=== PATIENT | female | born 1960 | race Caucasian/White ===

== ENCOUNTER → 2016-04-04 | Outpatient (CLI) | payer OTHER ==
[~2016-04-04] MED LIST: COLACE100 MG PO; FLAGYL500 MG PO; FLEXERIL5 MG PO; FLONASE ALLERG9.9 ML NAS; HYDROCODONE BIT1 T11 PO; IBU800 M1 PO; OMEPRAZOLE MAGN20 M1; PREDNICOT20 MG PO; PROVIGIL100 MG; ZOFRAN4 MG PO
== END | disposition home or self-care (01) ==
LOC: US 07:58
DX: R55 Syncope and collapse (principal); R42 Dizziness and giddiness; R51 Headache; R20.0 Anesthesia of skin; R07.9 Chest pain, unspecified

== ENCOUNTER 2016-11-09 07:37 | Emergency (ER) | payer OTHER ==
[~2016-11-09] VITALS: Ht 170.1 cm; Wt 149.7 kg
[2016-11-09 08:50] LABS: ACT PARTIAL THROMBO TIME 22.1 SECONDS (20.8-31.5)
[2016-11-09 08:51] LABS: ALBUMIN 2.9 gm/dl (3.1-4.5); ALKALINE PHOSPHATASE 101 U/L (45-117); BUN 22 mg/dl (7-24); CHLORIDE 107 mmol/L (98-107); CREATININE 0.85 mg/dL (0.55-1.02); POTASSIUM 4.3 mmol/L (3.5-5.1); SGOT/AST 21 IU/L (3-35); SGPT/ALT 17 U/L (12-78); SODIUM 140 mmol/L (136-145); TOTAL PROTEIN 6.9 gm/dL (6.4-8.2); URIC ACID 5.2 mg/dL (2.6-6.0)
[2016-11-09 08:59] LABS: BASO # 0.1 10*3/uL (0.0-0.1); EOS # 0.2 10*3/uL (0.0-0.4); EOS % 1.7 % (1.0-4.0); HEMATOCRIT 42.6 % (37.0-47.0); HEMOGLOBIN 13.7 g/dl (12.0-16.0); LYMPH # 1.9 10*3/uL (1.3-4.4); LYMPH % 16.8 % (27.0-41.0); MEAN CELL VOLUME 90.4 fl (81.0-99.0); MEAN CORPUSCULAR HGB 29.1 pg (27.0-31.0); MEAN CORPUSCULAR HGB CONC 32.2 g/dl (33.0-37.0); MONO # 0.7 10*3/uL (0.1-1.0); MONO % 6.4 % (3.0-9.0); NEUT # 8.4 10*3/uL (2.3-7.9); NEUT % 73.7 % (47.0-73.0); PLATELET COUNT AUTOMATED 306 10*3/uL (130-400); RED BLOOD COUNT 4.71 10*6/uL (4.10-5.10); RED CELL DISTRI WIDTH 13.2 % (0-14.5); WHITE BLOOD COUNT 11.4 10*3/uL (4.8-10.8)
[2016-11-09] MEDS ORDERED: PREDNISONE50 MG PO (10:45)
== END 2016-11-09 11:39 | disposition home or self-care (01) ==
LOC: ED 07:37
PROVIDERS: Emergency Medicine
DX: M17.11 Unilateral primary osteoarthritis, right knee (principal); Z98.890 Other specified postprocedural states; Z79.899 Other long term (current) drug therapy; Z88.8 Allergy status to other drugs, medicaments and biological substances

== ENCOUNTER 2017-02-23 18:13 | Inpatient (IN) | payer OTHER ==
[~2017-02-23] VITALS: Ht 167.6 cm; Wt 159.5 kg
--- NOTE | ~2017-02-23 | PR ---
[place], [place] PROGRESS NOTE NAME: JERALD HENRY [facility] #: [id number] UNIT #: [id number] ROOM: 427 DOCTOR: JOHNATHON WILLIAMSON MD,CESARIO BIRTHDATE: [birth year] DOS: 02/25/2017 SUBJECTIVE: She has reported reduction in symptoms of shortness of breath with exertion. The edema of the lower extremity has been noted improving. There are no symptoms of chest pain or cough. OBJECTIVE: VITAL SIGNS: Normal temperature, respiratory rate 20, heart rate 120-95, blood pressure 120/60-115/83. Pulse oxygen saturation on room air 94% saturation. HEENT: Shows no acute change. NECK: Supple and obese. CARDIOVASCULAR: S1, S2 audible. LUNGS: The patient was noted without any wheeze or crackles. ABDOMEN: Soft, nontender. EXTREMITIES: The patient was noted with mild edema, chronic obesity. LABORATORY DATA: BMP: BUN and creatinine were noted normal today. CO2 33. ESR 28. CBC today normal. IMPRESSION: 1. The patient most likely with right-sided heart failure. 2. The patient with edema of the lower extremities. 3. History of severe morbid obesity. 4. Obstructive sleep apnea disorder, treated with CPAP. PLAN OF MANAGEMENT: No changes in the therapy for this patient at this time. Continue the current therapy, plan of management and care. Usual treatment, other supportive plan of management and therapies. CESARIO DIEGO MD CM:PNTRANS 1419 17 CESARIO WILLIAMSON MD 02/25/172217 interface
--- NOTE | ~2017-02-23 | PR ---
[place], [place] PROGRESS NOTE NAME: JERALD HENRY [facility] #: [id number] UNIT #: [id number] ROOM: 427 DOCTOR: JOHNATHON WILLIAMSON MD,CESARIO BIRTHDATE: [birth year] DOS: 02/26/2017 PULMONARY PROGRESS NOTE SUBJECTIVE: She continued on the diuretic therapy at this time with reduction in edema of lower extremities. Shortness of breath has been decreasing. There was no further hypoxia described. OBJECTIVE: VITAL SIGNS: Normal temperature, respiratory rate 20, heart rate 78, blood pressure 122/80. Intake 2000, output 3800 mL. Pulse oxygen saturation on room air was 97% saturation this morning at rest. HEENT: No acute change. NECK: Supple. CARDIOVASCULAR: S1, S2 audible. LUNGS: Without any wheeze or crackles. ABDOMEN: Soft, nontender. EXTREMITIES: Shows resolving edema with chronic morbid obesity. LABORATORY DATA: Normal BUN and creatinine were noted this morning and other electrolytes. CBC was normal. IMPRESSION: Resolving acute ____ right-sided congestive heart failure. The patient with a history of severe morbid obesity and obstructive sleep apnea disorder. PLAN OF TREATMENT: No changes in plan of therapy at this time will be recommended. Continue current plan of management and care with the diuretic. Monitor kidney function and electrolytes. Continue CPAP from home. CESARIO DIEGO MD CM:PNTRANS 1217 CESARIO WILLIAMSON MD 02/27/17 0038 interface
--- NOTE | ~2017-02-23 | PR ---
[place], [place] PROGRESS NOTE [facility] [id number] #: [id number] ROOM: 427 DOCTOR: CELESTE GRIFFIN MD BIRTHDATE: [birth year] DOS: 02/28/2017 CARDIOLOGY PROGRESS NOTE SUBJECTIVE: The patient was seen at her bedside today with family in attendance. She continues to have significant peripheral edema and also does have dyspnea and tachycardia with modest exertion. She denies any chest pain. She is diuresing slowly. PHYSICAL EXAMINATION: VITAL SIGNS: Today, her pulse is 100 at rest, blood pressure is 128/84. She is afebrile. She weighs 161.6 kilograms. NECK: Supple. She has no jugular distention, but she does have hepatojugular reflux. Carotids are full. LUNGS: Respirations are unlabored at rest. She has decreased breath sounds at the bases, but no wheezes or rales. HEART: Has a regular rhythm. She has a fourth heart sound, but no third heart sound. ABDOMEN: Obese, but otherwise benign. EXTREMITIES: Showed 2+ pitting edema to the knees. Echocardiogram dated 02/26/2017 showed normal left ventricular size with mild concentric left ventricular hypertrophy. Overall, systolic function was normal with grade 1 diastolic relaxation abnormalities. Right ventricular size and function were normal. There was no clinically important abnormality of valve function. Hemoglobin today is 12.7 with a white count of 7800 and a platelet count of 286,000. Sodium is 142, potassium 3.7, BUN 20 and creatinine 0.82. IMPRESSION: 1. Chronic diastolic congestive heart failure with significant fluid retention. 2. Cellulitis of the lower extremities due to fluid overload. 3. Tachycardia. 4. Morbid obesity. PLAN: We will increase her diuretics. I was hoping to switch her to oral diuretics, but at this point, I think we must continue to diurese her with intravenous medications. We will increase the dose and frequency of her IV furosemide and continue to observe her closely. I thank the hospitalist physicians for asking our advice regarding her care. [place], [place] PROGRESS NOTE NAME: JERALD HENRY UNIT #: [id number] ROOM: 427 DOCTOR: CELESTE GRIFFIN MD BIRTHDATE: [birth year] CELESTE GRIFFIN MD CM:PNTRANS 31 51 CELESTE GRIFFIN MD 02/28/172251 interface
--- NOTE | ~2017-02-23 | PR ---
[place], [place] PROGRESS NOTE NAME: JERALD HENRY [facility] #: [id number] UNIT #: [id number] ROOM: 427 DOCTOR: JOHNATHON WILLIAMSON MD,CESARIO BIRTHDATE: [birth year] DOS: 02/28/2017 SUBJECTIVE: The patient has not been noted any new acute respiratory complaints at this time. Shortness of breath has been noted stable, occur only with exertion. This morning, she was seen sitting on the chair. The diuretic has been continued, but the patient was not noted adequate diuresis in the past 24 hours. OBJECTIVE: VITAL SIGNS: Normal temperature, respiratory rate 20, heart rate 90, blood pressure 108/58 recorded this morning. The intake was 1690, output was 2350, negative for 660 mL. Pulse ox saturation on room air was 93-94% saturation recorded at rest. HEENT: No acute change. NECK: Supple. CARDIOVASCULAR: S1, S2 audible. LUNGS: The patient was noted without any wheeze or crackles at the present time. ABDOMEN: Soft, nontender. IMPRESSION: 1. Stable respiratory status noted at the present time. 2. Dyspnea with exertion. 3. History of obstructive sleep apnea disorder. 4. Persistent congestive heart failure. 5. Edema of the lower extremity was noted. PLAN OF MANAGEMENT: Continuation of the diuretic use to keep the patient in negative fluid balance. Other supportive therapy, plan of management as well. Usual care, other treatment plan of care. CESARIO DIEGO MD CM:PNTRANS 120 28 CESARIO WILLIAMSON MD 02/28/171828 interface
--- NOTE | ~2017-02-23 | CON ---
[place], [place] REPORT OF CONSULTATION NAME: JERALD HENRY [facility] #: [id number] UNIT #: [id number] ROOM: 427 DOCTOR: JOHNATHON WILLIAMSON MD,CESARIO BIRTHDATE: [birth year] DOS: 02/24/2017 PULMONARY CONSULTATION EVALUATION AND MANAGEMENT REASON FOR CONSULTATION: Symptoms of shortness of breath. HISTORY OF PRESENT ILLNESS: A 57-year-old white female, who has been known to me from the past, but not seen in the office more than 4 years. She has been diagnosed with obstructive sleep apnea disorder treated with the positive airway pressure treatment. The patient presented to the hospital. She has been noted progressive increased shortness of breath ongoing for the past 3 months or so. She was also noted with increasing edema of the lower extremities. The patient denies any symptoms of chest pain or hemoptysis. The shortness of breath was not associated with any symptoms of coughing, wheezing, chest pain, or chest tightness. REVIEW OF SYSTEMS: CONSTITUTIONAL: Symptom progressive weight gain has occurred in the last several months gradually as well. She stated she has gained about 70 pounds of weight in the past 3 months. Denies any symptoms of fever or chills. Complaining of fatigue. EYES: Denies any burning, redness, or tenderness. EARS, NOSE, AND THROAT SYMPTOMS: Sore throat, hoarseness, otalgia, postnasal drainage, or epistaxis. CARDIOVASCULAR: Denies anginal pain of the lower extremity, palpitation noted, progressive edema of the bilateral lower extremities. GASTROINTESTINAL: Dysphagia, nausea, vomiting, diarrhea, abdominal pain, hematemesis, melena, or hematochezia. SKIN: Denies any lesions or rashes. MUSCULOSKELETAL: No acute joint pain, redness, or tenderness. SKIN: No lesions or rashes. CENTRAL NERVOUS SYSTEM: No dizziness, headache, diplopia, syncopal episodes, or seizures. Remaining systems were reviewed. They were noted all negative. PAST MEDICAL HISTORY: 1. The patient noted with history of obstructive sleep apnea disorder, noncompliant with the treatment. 2. Severe morbid obesity, progressive weight gain. The patient weight was known to in in 2012 at 320 previously, currently noted with a BMI of 59. 3. History of arthritis, regular use of ibuprofen 800 mg p.o. b.i.d. 4. History of essential hypertension. SOCIAL HISTORY: She was noted nonsmoker lifetime. Lives at home. Denies any history of alcohol use, illicit drug use, or any tobacco use. PAST SURGICAL HISTORY: No major surgeries. FAMILY HISTORY: The patient's father at age 9090 years old from complication of congestive heart failure and multiple other complications. Mother at the age of 7878 years old, complication related to the lung cancer. [place], [place] REPORT OF CONSULTATION [facility]: [facility] [id number] UNIT #: [id number] ROOM: [facility] DOCTOR: CESARIO MORGAN MD BIRTHDATE: [birth year] HOME MEDICATIONS: Reported use of recent prescription of prednisone and Flonase. The patient had been using previously as regular use of cetirizine, omeprazole, Colace, and ibuprofen 800 mg p.o. b.i.d. DRUG ALLERGY HISTORY: THE PATIENT WAS NOTED ALLERGIES TO PSEUDOEPHEDRINE. PHYSICAL EXAMINATION: GENERAL: This is a 57-year-old female patient, who has been currently lying in the bed, without any acute distress. VITAL SIGNS: Height of 5 feet 6 inches, weight of 367 pounds, BMI 59.3. Shows normal temperature, respiratory rate of 18-20, heart rate of 102-106 with heart rate going up to 150. The patient with mild exertion. Blood pressure ranging between 151/70-119/77. The pulse oxygen saturation noted as 96% on room air. HEENT: Patient's oxygen saturation does drop as she stays the last night in the 80s, as the patient went from her bed to the bathroom only 4 or 5 feet in the hospital. HEENT: Severe morbid obesity. NECK: Supple, short and obese. Severe reduced posterior pharyngeal space, high tongue base and crowding soft tissue structures. CARDIOVASCULAR: S1, S2 is audible. LUNGS: The patient was noted with general reduction of breath sounds bilaterally without any wheeze or crackles. ABDOMEN: Soft, severe morbid obesity. Bowel sounds present without any tenderness. EXTREMITIES: 2+ to 3+ pitting edema lower extremities. There was no visible skin changes which are noted abnormal at the present time of assessment. CENTRAL NERVOUS SYSTEM: Cranial nerves 2-12 intact. No focal deficit. MUSCULOSKELETAL: Does not show any acute deformities. SKIN: She does not show any lesions or rashes. LABORATORY DATA: The patient's CBC yesterday normal. CBC was noted except 4.1% eosinophils. PT/PTT were noted normal. The patient on 02/23, CMP was noted completely normal including a proBNP. Ultrasound of bilateral lower extremities was done, which does not show evidence of deep venous thrombosis. Lactic acid 2.6. The patient was noted with followup lactic acid 1.5. CBC on 02/24, was noted as normal. CMP was 02/24, normal BUN and creatinine. Chest x-ray, 2-view, which was noted limited for the patient, reviewed from PACS images, does not show any acute pulmonary abnormalities. The patient has also CTA of the chest completed yesterday. The patient during this current hospitalization, on admission does not show any evidence of pulmonary embolism. Hiatal hernia was noted. Lungs were noted clear of any infiltration or other abnormalities. There were no pleural effusions. PT and PTT were noted normal this morning. The patient had ultrasound of the abdomen completed as well for the patient, which was noted without any acute abnormalities. The patient was described as a diffuse hepatic steatosis as well as cholelithiasis. IMPRESSION: 1. The patient who has been currently admitted to the hospital. The patient presented to hospital with symptoms of shortness breath related to possibility [place], [place] REPORT OF CONSULTATION [facility]: [id number] UN[facility] #: [id number] ROOM: 427 DOCTOR: JOHNATHON WILLIAMSON MD,CESARIO BIRTHDATE: [birth year] of some volume load as well as increase obesity. Underlying bronchial asthma related to the obesity cannot be completely excluded. 2. Exertion of hypoxia secondary to above. 3. The patient with obstructive sleep apnea disorder, noncompliant to treatment. 4. Severe super morbid obesity. The patient with edema of the lower extremity, most likely related to the use of the nonsteroidal anti-inflammatory medication regularly as ibuprofen and possibility of cor pulmonale with right-sided heart failure would be considered in the differential diagnosis. 6. History of osteoarthritis and other medical illnesses are reported. PLAN OF MANAGEMENT: Consider discontinuation of nonsteroidal anti-inflammatory medication, diuretic ____ monitoring of the BUN and creatinine closely. The echocardiogram to assess the right ventricular function and to rule out pulmonary hypertension as well. Consider reassessment. The patient's management obstructive sleep apnea disorder because of severe morbid obesity at the younger age. The patient should be assessed and will benefit from bariatric surgery assess with the patient was a gastric sleeve resection in the future. Other supportive therapy, plan of management, and care. Usual treatment, other therapies as ongoing. Additional treatment changes will be ordered based on the progression of the illness and further assessment in future. CESARIO DIEGO MD CM:CONSTR:REPORT OF CONSULTATION 1326 02/24/17 1923 interface
--- NOTE | ~2017-02-23 | PR ---
[place], [place] PROGRESS NOTE [facility] [id number] UNIT #: [id number] ROOM: 427 DOCTOR: JOHNATHON WILLIAMSON MD,CESARIO BIRTHDATE: [birth year] DOS: 02/27/2017 SUBJECTIVE: She has been noted comfortable at this time. Continued on diuretic therapy. Denies symptoms of chest pain, coughing, or any sputum expectoration. The shortness of breath has been noted decreasing with exertion. She does not have any symptoms of shortness of breath at rest, but there were ____ symptoms of wheeze. OBJECTIVE: VITAL SIGNS: Recorded and show normal temperature, respiratory rate 20, heart rate 95, blood pressure 108/58. Pulse oxygen saturation 92% on room air. HEENT: No acute change. NECK: Supple. CARDIOVASCULAR: S1, S2 audible. LUNGS: Without any wheeze or crackles at present time. ABDOMEN: Soft and nontender. EXTREMITIES: Show chronic obesity with mild superimposed edema. IMPRESSION: The patient with acute congestive heart failure, noted with severe morbid obesity and history of obstructive sleep apnea disorder. PLAN OF TREATMENT: Continue diuretic. Monitor respiratory symptoms. Continue monitoring the respiratory status as well. Continue use of CPAP at night. CESARIO DIEGO MD CM:PNTRANS 1204 1405 CESARIO WILLIAMSON MD 02/27/17 1405 interface
--- NOTE | ~2017-02-23 | PR ---
[place], [place] PROGRESS NOTE NAME: JERALD HENRY [facility] #: [id number] UNIT #: [id number] ROOM: 427 DOCTOR: JOHNATHON WILLIAMSON MD,CESARIO BIRTHDATE: [birth year] DOS: 03/01/2017 SUBJECTIVE: The patient has been noted comfortable at this time, noted with continued diuresis. She stated that she will be considered for home discharge today. She has not been noted symptoms of chest pain or any abdominal pain. OBJECTIVE: VITAL SIGNS: Recorded and show normal temperature, respiratory rate 20, heart rate 91, blood pressure 120/74. The pulse ox saturation normal on room air. Output negative ____ noted 1.59 liters in the last 24 hours. GENERAL: Chronic obesity. NECK: Supple. CARDIOVASCULAR: S1, S2 audible. LUNGS: Clear. ABDOMEN: Soft and nontender. EXTREMITIES: Still show mild edema of the ankles and feet. IMPRESSION: 1. Resolving acute congestive heart failure, most likely right-sided heart failure would be considered. 2. The patient with chronic morbid obesity as well with obstructive sleep apnea disorder. PLAN OF TREATMENT: No changes from the pulmonary standpoint. Continue the patient's current therapy and plan of care as previously. Usual care, other supportive plan of management and treatment. CESARIO DIEGO MD CM:PNTRANS 1035 1426 CESARIO WILLIAMSON MD 03/01/17 1426 interface
[~2017-02-23 18:13] MED LIST changes: +PREDNISONE50 MG PO
[2017-02-23 18:34] VITALS: BP 142/55
[2017-02-23 19:01] LABS: BASO # 0.1 10*3/uL (0.0-0.1); BASO % 0.8 % (0.0-1.0); EOS # 0.4 10*3/uL (0.0-0.4); EOS % 4.1 % (1.0-4.0); HEMATOCRIT 43.2 % (37.0-47.0); LYMPH # 2.5 10*3/uL (1.3-4.4); MEAN CORPUSCULAR HGB 29.2 pg (27.0-31.0); MEAN CORPUSCULAR HGB CONC 32.4 g/dl (33.0-37.0); MEAN PLATELET VOLUME 9.9 fl (9.6-12.3); MONO # 0.6 10*3/uL (0.1-1.0); MONO % 6.2 % (3.0-9.0); NEUT # 6.3 10*3/uL (2.3-7.9); NEUT % 63.7 % (47.0-73.0); PLATELET COUNT AUTOMATED 303 10*3/uL (130-400); RED CELL DISTRI WIDTH 13.3 % (0-14.5); WHITE BLOOD COUNT 9.8 10*3/uL (4.8-10.8)
[2017-02-23 19:12] LABS: ACT PARTIAL THROMBO TIME 23.1 SECONDS (20.8-31.5); INTERNATIONAL NORM RATIO 0.9 (2.0-3.5)
[2017-02-23 19:19] LABS: ALBUMIN 3.2 gm/dl (3.1-4.5); ALKALINE PHOSPHATASE 102 U/L (45-117); BUN 14 mg/dl (7-24); CHLORIDE 107 mmol/L (98-107); CREATININE 0.79 mg/dL (0.55-1.02); POTASSIUM 4.3 mmol/L (3.5-5.1); SGOT/AST 23 IU/L (3-35); SGPT/ALT 24 U/L (12-78); SODIUM 141 mmol/L (136-145); TOTAL PROTEIN 7.2 gm/dL (6.4-8.2)
[2017-02-23 19:22] LABS: TROPONIN I < 0.015 ng/ml (<0.045)
[2017-02-23 19:40] VITALS: BP 148/70
[2017-02-23 20:30] VITALS: BP 151/70
[2017-02-23 21:24] VITALS: BP 128/75
[2017-02-23 21:45] VITALS: BP 121/79
[2017-02-23 22:25] VITALS: BP 149/67
[2017-02-24] VITALS: BP 119/77
[2017-02-24] MEDS ORDERED: ZYRTEC10 MG PO (01:27)
[2017-02-24 06:53] LABS: BASO # 0.1 10*3/uL (0.0-0.1); BASO % 0.9 % (0.0-1.0); EOS # 0.4 10*3/uL (0.0-0.4); EOS % 4.6 % (1.0-4.0); HEMATOCRIT 39.4 % (37.0-47.0); HEMOGLOBIN 12.8 g/dl (12.0-16.0); LYMPH # 2.2 10*3/uL (1.3-4.4); LYMPH % 23.8 % (27.0-41.0); MEAN CELL VOLUME 89.5 fl (81.0-99.0); MEAN CORPUSCULAR HGB 29.1 pg (27.0-31.0); MEAN CORPUSCULAR HGB CONC 32.5 g/dl (33.0-37.0); MEAN PLATELET VOLUME 10.1 fl (9.6-12.3); MONO # 0.8 10*3/uL (0.1-1.0); MONO % 8.3 % (3.0-9.0); NEUT # 5.6 10*3/uL (2.3-7.9); NEUT % 62.3 % (47.0-73.0); PLATELET COUNT AUTOMATED 288 10*3/uL (130-400); RED CELL DISTRI WIDTH 13.3 % (0-14.5); WHITE BLOOD COUNT 9.1 10*3/uL (4.8-10.8)
[2017-02-24 07:25] LABS: ALBUMIN 3.1 gm/dl (3.1-4.5); BUN 13 mg/dl (7-24); CHLORIDE 104 mmol/L (98-107); POTASSIUM 3.7 mmol/L (3.5-5.1); SODIUM 142 mmol/L (136-145)
[2017-02-24 07:32] LABS: ALKALINE PHOSPHATASE 94 U/L (45-117); CHOLESTEROL 214 mg/dL (<200); CREATININE 0.78 mg/dL (0.55-1.02); HDL CHOLESTEROL 59 mg/dl (40-60); LDL CHOLESTEROL 132 mg/dL (9-159); SGOT/AST 17 IU/L (3-35); SGPT/ALT 21 U/L (12-78); TOTAL PROTEIN 6.5 gm/dL (6.4-8.2); TRIGLYCERIDES 116 mg/dl (<150); VLDL CHOLESTEROL 23 mg/dL (6-40)
[2017-02-24 07:42] LABS: ACT PARTIAL THROMBO TIME 24.2 SECONDS (20.8-31.5)
[2017-02-24 08:00] VITALS: BP 109/89
[2017-02-24 08:32] LABS: VITAMIN D, 25-HYDROXY 17.5 ng/mL (30-100)
[2017-02-24 11:12] LABS: BILIRUBIN NEGATIVE (NEGATIVE); BLOOD NEGATIVE (NEGATIVE); CLARITY SL CLOUDY (CLEAR); COLOR YELLOW (YELLOW); GLUCOSE NEGATIVE (NEGATIVE); KETONE NEGATIVE (NEGATIVE); LEUKO ESTERASE 1+ (NEGATIVE); NITRITE NEGATIVE (NEGATIVE); UROBILINOGEN 0.2 E.U./dl (0.2-1.0)
[2017-02-24 11:48] LABS: BACTERIA 1+; EPITHELIAL CELLS 16-20; WBC 16-20 wbc/hpf (0-5)
[2017-02-24 12:00] VITALS: BP 126/56
[2017-02-24 14:19] VITALS: BP 116/62
[2017-02-24 16:00] VITALS: BP 126/83
[2017-02-24 20:00] VITALS: BP 104/59
[2017-02-25] VITALS: BP 112/61
[2017-02-25 07:45] LABS: BASO # 0.1 10*3/uL (0.0-0.1); BASO % 1.1 % (0.0-1.0); EOS # 0.5 10*3/uL (0.0-0.4); HEMATOCRIT 41.1 % (37.0-47.0); HEMOGLOBIN 13.2 g/dl (12.0-16.0); LYMPH # 2.2 10*3/uL (1.3-4.4); LYMPH % 33.8 % (27.0-41.0); MEAN CELL VOLUME 91.7 fl (81.0-99.0); MEAN CORPUSCULAR HGB 29.5 pg (27.0-31.0); MEAN CORPUSCULAR HGB CONC 32.1 g/dl (33.0-37.0); MONO # 0.6 10*3/uL (0.1-1.0); MONO % 8.8 % (3.0-9.0); NEUT # 3.2 10*3/uL (2.3-7.9); PLATELET COUNT AUTOMATED 292 10*3/uL (130-400); RED BLOOD COUNT 4.48 10*6/uL (4.10-5.10); RED CELL DISTRI WIDTH 13.2 % (0-14.5); WHITE BLOOD COUNT 6.6 10*3/uL (4.8-10.8)
[2017-02-25 08:00] VITALS: BP 120/60
[2017-02-25 08:09] LABS: ALBUMIN 2.9 gm/dl (3.1-4.5); ALKALINE PHOSPHATASE 96 U/L (45-117); BUN 20 mg/dl (7-24); CHLORIDE 103 mmol/L (98-107); CREATININE 0.87 mg/dL (0.55-1.02); PHOSPHOROUS 3.9 mg/dL (2.5-4.9); POTASSIUM 3.6 mmol/L (3.5-5.1); SGOT/AST 17 IU/L (3-35); SGPT/ALT 20 U/L (12-78); SODIUM 142 mmol/L (136-145); TOTAL PROTEIN 6.5 gm/dL (6.4-8.2)
[2017-02-25 12:00] VITALS: BP 115/83
[2017-02-25 16:00] VITALS: BP 117/71
[2017-02-25 20:00] VITALS: BP 110/50
[2017-02-26] VITALS: BP 135/45
[2017-02-26 04:00] VITALS: BP 111/45
[2017-02-26 06:16] LABS: ALBUMIN 2.9 gm/dl (3.1-4.5); ALKALINE PHOSPHATASE 88 U/L (45-117); BUN 20 mg/dl (7-24); CHLORIDE 103 mmol/L (98-107); POTASSIUM 3.5 mmol/L (3.5-5.1); SGOT/AST 15 IU/L (3-35); SGPT/ALT 18 U/L (12-78); SODIUM 141 mmol/L (136-145); TOTAL PROTEIN 6.4 gm/dL (6.4-8.2)
[2017-02-26 06:41] LABS: BASO # 0.1 10*3/uL (0.0-0.1); BASO % 0.8 % (0.0-1.0); EOS # 0.5 10*3/uL (0.0-0.4); HEMATOCRIT 39.5 % (37.0-47.0); HEMOGLOBIN 12.8 g/dl (12.0-16.0); LYMPH # 2.5 10*3/uL (1.3-4.4); LYMPH % 31.7 % (27.0-41.0); MEAN CELL VOLUME 89.8 fl (81.0-99.0); MEAN CORPUSCULAR HGB 29.1 pg (27.0-31.0); MEAN CORPUSCULAR HGB CONC 32.4 g/dl (33.0-37.0); MEAN PLATELET VOLUME 10.1 fl (9.6-12.3); MONO # 0.7 10*3/uL (0.1-1.0); MONO % 8.5 % (3.0-9.0); NEUT # 4.1 10*3/uL (2.3-7.9); NEUT % 52.6 % (47.0-73.0); PLATELET COUNT AUTOMATED 296 10*3/uL (130-400); RED CELL DISTRI WIDTH 13.2 % (0-14.5); WHITE BLOOD COUNT 7.8 10*3/uL (4.8-10.8)
[2017-02-26 08:00] VITALS: BP 122/80
[2017-02-26 12:00] VITALS: BP 127/68
[2017-02-26 16:00] VITALS: BP 132/70
[2017-02-26 20:00] VITALS: BP 108/76
[2017-02-27] VITALS: BP 111/78
[2017-02-27 07:14] LABS: BASO # 0.1 10*3/uL (0.0-0.1); BASO % 1.1 % (0.0-1.0); EOS # 0.4 10*3/uL (0.0-0.4); EOS % 5.6 % (1.0-4.0); HEMATOCRIT 39.1 % (37.0-47.0); HEMOGLOBIN 12.7 g/dl (12.0-16.0); LYMPH # 2.3 10*3/uL (1.3-4.4); LYMPH % 29.5 % (27.0-41.0); MEAN CELL VOLUME 91.1 fl (81.0-99.0); MEAN CORPUSCULAR HGB 29.6 pg (27.0-31.0); MEAN CORPUSCULAR HGB CONC 32.5 g/dl (33.0-37.0); MEAN PLATELET VOLUME 9.8 fl (9.6-12.3); MONO # 0.7 10*3/uL (0.1-1.0); MONO % 8.8 % (3.0-9.0); NEUT # 4.3 10*3/uL (2.3-7.9); NEUT % 54.5 % (47.0-73.0); PLATELET COUNT AUTOMATED 286 10*3/uL (130-400); RED BLOOD COUNT 4.29 10*6/uL (4.10-5.10); RED CELL DISTRI WIDTH 13.3 % (0-14.5); WHITE BLOOD COUNT 7.8 10*3/uL (4.8-10.8)
[2017-02-27 07:40] LABS: CHLORIDE 104 mmol/L (98-107); POTASSIUM 3.7 mmol/L (3.5-5.1); SODIUM 142 mmol/L (136-145)
[2017-02-27 07:55] LABS: ALBUMIN 2.8 gm/dl (3.1-4.5); ALKALINE PHOSPHATASE 90 U/L (45-117); BUN 20 mg/dl (7-24); CREATININE 0.82 mg/dL (0.55-1.02); SGOT/AST 21 IU/L (3-35); SGPT/ALT 19 U/L (12-78); TOTAL PROTEIN 6.4 gm/dL (6.4-8.2)
[2017-02-27 08:00] VITALS: BP 108/58
[2017-02-27 12:00] VITALS: BP 123/64
[2017-02-27 16:00] VITALS: BP 113/86
[2017-02-27 20:00] VITALS: BP 121/80
[2017-02-28] VITALS: BP 116/58
[2017-02-28 08:00] VITALS: BP 108/58
[2017-02-28 12:00] VITALS: BP 101/58
[2017-02-28 16:00] VITALS: BP 128/84
[2017-02-28 20:00] VITALS: BP 103/72
[2017-03-01] VITALS (7 sets, daily range): BP systolic 99–126; BP diastolic 47–84
[2017-03-01 08:24] LABS: BUN 18 mg/dl (7-24); CHLORIDE 103 mmol/L (98-107); CREATININE 0.88 mg/dL (0.55-1.02); POTASSIUM 3.5 mmol/L (3.5-5.1); SODIUM 142 mmol/L (136-145)
[2017-03-02] VITALS: BP 115/66
[2017-03-02 07:04] LABS: BUN 21 mg/dl (7-24); CHLORIDE 100 mmol/L (98-107); CREATININE 0.97 mg/dL (0.55-1.02); POTASSIUM 3.4 mmol/L (3.5-5.1); SODIUM 138 mmol/L (136-145)
[2017-03-02 08:00] VITALS: BP 108/62
[2017-03-02 12:00] VITALS: BP 116/42
[2017-03-02] MEDS ORDERED: TOPROL XL50 M1 PO (12:12)
[2017-03-02] MEDS ORDERED: ALDACTONE25 MG PO (12:12)
[2017-03-02] MEDS ORDERED: TORSEMIDE20 MG PO (12:12)
[2017-03-02] MEDS ORDERED: LOSARTAN POTASS25 M1 PO (12:12)
== END 2017-03-02 13:52 | disposition home or self-care (01) | DRG 871 ==
LOC: ED 18:13 → 4E 21:58 → EDHOLD 21:58 → 4E 22:03
PROVIDERS: Emergency Medicine; Family Medicine; Internal Medicine Cardiovascular Disease; ADMIT Emergency Medicine
PROC: 5A09357 Assistance with Respiratory Ventilation, Less than 24 Consecutive Hours, Continuous Positive Airway Pressure (ICD-10-PCS; principal; 2017-02-26)
PROC: 5A09357 Assistance with Respiratory Ventilation, Less than 24 Consecutive Hours, Continuous Positive Airway Pressure (ICD-10-PCS; 2017-02-27)
PROC: 5A09357 Assistance with Respiratory Ventilation, Less than 24 Consecutive Hours, Continuous Positive Airway Pressure (ICD-10-PCS; 2017-03-02)
DX: A41.9 Sepsis, unspecified organism (principal); I50.33 Acute on chronic diastolic (congestive) heart failure; E87.2 Acidosis; E44.1 Mild protein-calorie malnutrition; E66.01 Morbid (severe) obesity due to excess calories; L03.116 Cellulitis of left lower limb; L03.115 Cellulitis of right lower limb; E83.41 Hypermagnesemia; R65.20 Severe sepsis without septic shock; M17.0 Bilateral primary osteoarthritis of knee; E78.00 Pure hypercholesterolemia, unspecified; K21.9 Gastro-esophageal reflux disease without esophagitis; D72.810 Lymphocytopenia; G47.33 Obstructive sleep apnea (adult) (pediatric); Z88.8 Allergy status to other drugs, medicaments and biological substances; Z68.43 Body mass index [BMI] 50.0-59.9, adult; Z82.49 Family history of ischemic heart disease and other diseases of the circulatory system; Z80.1 Family history of malignant neoplasm of trachea, bronchus and lung; Z79.899 Other long term (current) drug therapy

== ENCOUNTER → 2017-03-07 | Outpatient (CLI) | payer OTHER ==
[~2017-03-07] MED LIST changes: +ALDACTONE25 MG PO; +LOSARTAN POTASS25 M1 PO; +TOPROL XL50 M1 PO; +TORSEMIDE20 MG PO; +ZYRTEC10 MG PO
[2017-03-07 16:36] LABS: CREATININE 1.16 mg/dL (0.55-1.02); POTASSIUM 4.1 mmol/L (3.5-5.1)
== END | disposition home or self-care (01) ==
LOC: LAB 15:47
PROVIDERS: Emergency Medicine
DX: I50.9 Heart failure, unspecified (principal)

== ENCOUNTER → 2017-04-20 | Outpatient (CLI) | payer OTHER ==
[2017-04-20 18:05] LABS: BUN 21 mg/dl (7-24); CHLORIDE 94 mmol/L (98-107); CREATININE 1.03 mg/dL (0.55-1.02); POTASSIUM 3.2 mmol/L (3.5-5.1); SODIUM 136 mmol/L (136-145)
== END | disposition home or self-care (01) ==
LOC: LAB 17:10
PROVIDERS: Internal Medicine Cardiovascular Disease
DX: I50.32 Chronic diastolic (congestive) heart failure (principal); E66.01 Morbid (severe) obesity due to excess calories

== ENCOUNTER → 2017-08-08 | Outpatient (CLI) | payer OTHER ==
[2017-08-08 18:31] LABS: BUN 15 mg/dl (7-24); CHLORIDE 97 mmol/L (98-107); CREATININE 0.93 mg/dL (0.55-1.02); POTASSIUM 3.3 mmol/L (3.5-5.1); SODIUM 138 mmol/L (136-145)
== END | disposition home or self-care (01) ==
LOC: LAB 17:42
PROVIDERS: Internal Medicine Cardiovascular Disease
DX: I50.32 Chronic diastolic (congestive) heart failure (principal)

== ENCOUNTER → 2017-08-15 | Outpatient (CLI) | payer OTHER | END | disposition home or self-care (01) | LOC: RAD 07:49 | DX: Z01.818 Encounter for other preprocedural examination (principal) ==

== ENCOUNTER → 2018-02-09 | Outpatient (CLI) | payer OTHER ==
[2018-02-09 11:16] LABS: BASO # 0.1 10*3/uL (0.0-0.1); BASO % 0.8 % (0.0-1.0); EOS # 0.3 10*3/uL (0.0-0.4); EOS % 3.9 % (1.0-4.0); HEMATOCRIT 41.8 % (37.0-47.0); HEMOGLOBIN 13.3 g/dl (12.0-16.0); LYMPH % 24.3 % (27.0-41.0); MEAN CELL VOLUME 94.1 fl (81.0-99.0); MEAN CORPUSCULAR HGB CONC 31.8 g/dl (33.0-37.0); MEAN PLATELET VOLUME 11.3 fl (9.6-12.3); MONO # 0.5 10*3/uL (0.1-1.0); MONO % 6.4 % (3.0-9.0); NEUT # 5.4 10*3/uL (2.3-7.9); NEUT % 64.2 % (47.0-73.0); PLATELET COUNT AUTOMATED 317 10*3/uL (130-400); RED BLOOD COUNT 4.44 10*6/uL (4.10-5.10); RED CELL DISTRI WIDTH 14.4 % (0-14.5); WHITE BLOOD COUNT 8.4 10*3/uL (4.8-10.8)
[2018-02-09 11:41] LABS: ALBUMIN 3.2 gm/dl (3.1-4.5); ALKALINE PHOSPHATASE 118 U/L (45-117); BUN 7 mg/dl (7-24); CHLORIDE 106 mmol/L (98-107); CREATININE 0.76 mg/dL (0.55-1.02); POTASSIUM 3.6 mmol/L (3.5-5.1); SGOT/AST 27 IU/L (3-35); SGPT/ALT 29 U/L (12-78); SODIUM 142 mmol/L (136-145); TOTAL PROTEIN 7.2 gm/dL (6.4-8.2)
[2018-02-09 11:50] LABS: VITAMIN D, 25-HYDROXY 43.7 ng/mL (30-100)
[2018-02-09 11:51] LABS: FERRITIN 32.3 ng/mL (10.0-291.0)
== END | disposition home or self-care (01) ==
LOC: LAB 10:38
PROVIDERS: Surgery
DX: K90.89 Other intestinal malabsorption (principal); E55.9 Vitamin D deficiency, unspecified; Z98.84 Bariatric surgery status

== ENCOUNTER → 2020-05-18 | Outpatient (CLI) | payer OTHER | END | disposition home or self-care (01) | LOC: MAMMO 17:27 | PROVIDERS: ATTEND Nurse Practitioner Family | DX: Z12.31 Encounter for screening mammogram for malignant neoplasm of breast (principal); N64.89 Other specified disorders of breast ==

== ENCOUNTER → 2020-06-17 | Outpatient (CLI) | payer OTHER | END | disposition home or self-care (01) | LOC: US 13:46 | PROVIDERS: ATTEND Nurse Practitioner Family | DX: R79.89 Other specified abnormal findings of blood chemistry (principal) ==

== ENCOUNTER 2021-03-15 21:54 | Emergency (ER) | payer OTHER ==
[~2021-03-15] VITALS: Ht 165.1 cm; Wt 99.8 kg
[2021-03-15 22:44] LABS: BASO # 0.1 10*3/uL (0.0-0.1); BASO % 0.4 % (0.0-1.0); EOS % 0.1 % (1.0-4.0); HEMATOCRIT 39.9 % (37.0-47.0); LYMPH # 0.9 10*3/uL (1.3-4.4); LYMPH % 6.7 % (27.0-41.0); MEAN CELL VOLUME 87.3 fl (81.0-99.0); MEAN CORPUSCULAR HGB 28.7 pg (27.0-31.0); MEAN CORPUSCULAR HGB CONC 32.8 g/dl (33.0-37.0); MEAN PLATELET VOLUME 9.4 fl (9.6-12.3); MONO # 0.8 10*3/uL (0.1-1.0); NEUT # 11.6 10*3/uL (2.3-7.9); NEUT % 86.4 % (47.0-73.0); PLATELET COUNT AUTOMATED 342 10*3/uL (130-400); RED BLOOD COUNT 4.57 10*6/uL (4.10-5.10); RED CELL DISTRI WIDTH 13.9 % (0-14.5); WHITE BLOOD COUNT 13.4 10*3/uL (4.8-10.8)
[2021-03-15 23:02] LABS: ALBUMIN 2.9 gm/dl (3.1-4.5); ALKALINE PHOSPHATASE 124 U/L (45-117); BUN 15 mg/dl (7-24); CHLORIDE 106 mmol/L (98-107); CREATININE 0.82 mg/dL (0.55-1.02); POTASSIUM 3.7 mmol/L (3.5-5.1); SGOT/AST 23 IU/L (3-35); SGPT/ALT 22 U/L (12-78); SODIUM 138 mmol/L (136-145); TOTAL PROTEIN 6.8 gm/dL (6.4-8.2)
== END 2021-03-16 00:07 | disposition home or self-care (01) ==
LOC: ED 21:54
PROVIDERS: Internal Medicine
DX: B34.9 Viral infection, unspecified (principal); Z20.822 Contact with and (suspected) exposure to COVID-19; D72.829 Elevated white blood cell count, unspecified; E88.09 Other disorders of plasma-protein metabolism, not elsewhere classified